=== PATIENT | female | born 1955 | race Caucasian/White ===

== ENCOUNTER → 2022-07-31 13:45 | Outpatient (BNVA) | payer MEDICARE, BC, MEDICAID, SELFPAY | PROVIDERS: PCP Student in an Organized Health Care Education/Training Program; Referring Provider Student in an Organized Health Care Education/Training Program; Visit Provider Internal Medicine | DX: L65.9 Nonscarring hair loss, unspecified (principal); L67.9 Hair color and hair shaft abnormality, unspecified; Z78.0 Asymptomatic menopausal state | CPT/HCPCS: 99204 ==